=== PATIENT | female | born 2005 | race Caucasian/White ===

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

== ENCOUNTER 2024-12-13 14:56 | Emergency (ER) | payer SELFPAY ==
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
[2024-12-13 14:57] VITALS: BP 132/82; PULSE 74; RESP 16; TEMP 36.8; O2SAT 98; BMI 30.7
--- NOTE | 2024-12-13 15:20 | RAD_ITS ---
PROCEDURE: ANKLE MIN 3 VIEWS 12/13/2024 REASON FOR EXAM: PAIN No known injury. TECHNIQUE: Procedure Code: RADANK Modality: DX Procedure: ANKLE MIN 3 VIEWS Laterality: Right COMPARISON: None FINDINGS: Bones: There is normal mineralization of the osseous structures. There are no fractures or dislocations. Joints: Normal alignment. Mortise appears intact. No effusion. Soft tissues: Soft tissues are unremarkable. RAD/Ankle min 3 Views IMPRESSION: NEGATIVE ANKLE SERIES Reading Location: [id number]
--- NOTE | 2024-12-13 15:21 | EDS_ITS ---
HPI History of Present Illness Chief Complaint: Lower Extremity Injury Narrative Narrative: 19-year-old female who denies significant past medical history although she has had injury to her right ankle last year, presents with approximately 1 week of right ankle pain. She denies any recent injury or fall. Is worse with standing, walking, and movement/weightbearing. She complains of pain and swelling mainly in the right talofibular ligament area. She states that when she drives, there is pain that shoots up the lateral aspect of her right leg at time. No chest pain or shortness of breath. She started work again on Saturday of last week and she states ever since then she has had pain in her lateral ankle area. [facility] Medical History (Updated 12/13/24 @ 15:42 by Gopi Moses MD) Ankle pain Physical exam, pre-employment Home Medications ?Medication ?Instructions ?Recorded ?Last Taken ?Type NK 11/26/23 Unknown History Allergy/AdvReac Type Severity Reaction Status Date / Time No Known Allergies Allergy Verified 12/13/24 14:57 Social History Smoking Status: Never smoker ROS ROS ED ROS Narrative Review of systems positive for right lateral ankle pain and swelling. No chest pain, shortness of breath, no recent fall or injury. No swelling of calf. Pain worse with weightbearing and walking, worse with movement. EXAM Physical Exam Narrative Exam Narrative: Afebrile. Vital signs noted. Nontoxic-appearing. Cardiovascular examination reveals a regular rate and rhythm. Lungs are clear to auscultation bilaterally. Abdomen soft and nontender. Focused examination of the right ankle does show minimal swelling and tenderness in the right talofibular ligament area. Mild tenderness on the right lateral malleolus. No crepitance. Palpable dorsalis pedis pulse. No palpable Achilles tendon deficit. Plantarflexion and dorsiflexion right foot intact. Const Vital Signs: 12/13/24 14:57 Temperature 98.2 F Temperature Source Oral Pulse Rate 74 Respiratory Rate 16 Blood Pressure 132/82 H Blood Pressure Mean 98 Pulse Ox 98 Oxygen Delivery Method Room Air MDM MDM MDM Narrative Medical decision making narrative: Differential diagnosis includes but not limited to right ankle sprain versus arthritis versus overuse syndrome versus fracture. History and physical does not support fracture. X-rays were obtained of the right ankle and 3 views and interpreted by myself independently. Patient states she has been taking Tylenol. She was instructed to possibly add an NSAID to her analgesia. On my individual interpretation of her x-ray of the right ankle and 3 views there is no evidence of soft tissue swelling or fracture. I reviewed the radiology report which confirmed my independent interpretation. At this point in time she will be placed in an Chidi wrap and told to continue ice and elevation and [id number] medications. She was referred to podiatry. She requested to be off work today. At this point in time, I feel she can be discharged safely home with follow-up to either primary care provider and/or podiatry. Weightbearing as tolerated. Disposition is discharged home in stable condition. History & Record Review Discussion w/independent historian: Patient Additional record(s) reviewed:: Prior ED visit (Noncontributory to current chief complaint) Radiography Diagnostic Testing: Clinical Impression(s) from Imaging Studies Ankle X-Ray 12/13/24 15:20 IMPRESSION: NEGATIVE ANKLE SERIES Reading Location: [facility] Discharge Plan Triage Chief Complaint: Lower Extremity Injury ED Provider: Gopi Moses Dx/Rx/DC Orders Clinical Impression: Pain in right ankle, Right ankle sprain Instructions: ED Bandage Elastic Wrap, ED Sprain Ankle W X Ray Prescriptions: No Action NK Stand Alone Forms: ED Work / School Excuse Primary Care Provider: Edwin Sosa KNITTING MACHINE FIXER Referrals: Davin Coats MD [Non-Staff, Family Practice] Mathieu Wagner DPM [Med Staff - Active Staff, Podiatry] - 1 Week if not improving Activity Restrictions/Additional Instructions: Ice and elevate right ankle a few times a day when possible for 10 to 15 minutes. Follow-up with podiatry if not improving in 1 week. Print Language: Dominican Disposition Disposition: Home, Self Care
== END 2024-12-13 15:51 | disposition home or self-care (01) ==
PROVIDERS: Emergency Provider Emergency Medicine; PCP Nurse Practitioner Family; Visit Provider Emergency Medicine
DX: S93.401A Sprain of unspecified ligament of right ankle, initial encounter (principal); X58.XXXA Exposure to other specified factors, initial encounter
CPT/HCPCS: 73610; 99282